=== PATIENT | female | born 1955 | race Two or more races ===

== ENCOUNTER 2021-05-01 08:00 | Outpatient (CLI) | payer OTHER | END 2021-05-01 09:39 | disposition home or self-care (01) | LOC: PPH VACUNA 08:00 | PROVIDERS: ATTEND Emergency Medicine Pediatric Emergency Medicine | DX: Z23 Encounter for immunization (principal) ==

== ENCOUNTER 2021-07-24 17:38 | Emergency (ER) | payer OTHER ==
[~2021-07-24] VITALS: Ht 162.6 cm; Wt 109.8 kg
== END 2021-07-24 22:19 | disposition home or self-care (01) ==
LOC: ER 17:38
DX: G51.0 Bell's palsy (principal); R53.1 Weakness

== ENCOUNTER 2023-12-31 08:02 | Emergency (ER) | payer OTHER ==
[~2023-12-31] VITALS: Ht 162.6 cm; Wt 102.1 kg
[2023-12-31] MEDS ORDERED: LIPITOR20 MG (08:12)
[2023-12-31] MEDS ORDERED: AVAPRO150 MG (08:12)
[2023-12-31] MEDS ORDERED: GLUMETZA500 MG (08:12)
[2023-12-31] MEDS ORDERED: KETOROLAC TROMETHAMINE 30 MG VIAL IV ONE (08:45)
[2023-12-31] MEDS ORDERED: 0.9 % SODIUM CHLORIDE 500 ML IV SCH (08:45)
[2023-12-31] MEDS ORDERED: KETOROLAC TROMETHAMINE 30 MG VIAL ONE (09:07)
[2023-12-31 09:41] LABS: PH,URINE 7.5 (5.0-8.0); URINE APPEARANCE Clear; URINE BILIRRUBIN Negative (NEGATIVE); URINE BLOOD Negative; URINE COLOR Yellow; URINE GLUCOSE Negative (NEGATIVE); URINE LEUKOCYTE Moderate; URINE NITRATE Negative; URINE PROTEIN Negative (NEGATIVE)
[2023-12-31 09:45] LABS: URINE BACTERIA 467.3 uL (0.0-1933); URINE EPITHELIAL CELLS 14.9 uL (0.0-38.8); URINE RBC 36.4 uL (0.0-20.8); URINE WBC 5.8 uL (0.0-23.2)
[2023-12-31 09:53] LABS: INR 1.11; PARTIAL THROMBOPLASTIN TIME 30.8 SECONDS (22.0-34.0); PROTHROMBIN TIME 11.6 SECONDS (9.0-11.5)
[2023-12-31 10:52] LABS: HEMATOCRIT 38.9 % (36.0-45.00); HEMOGLOBIN 12.5 g/dL (12.0-15.00); MEAN CELL VOLUME 83.1 fL (80.00-100.00); MEAN CORPUSCULAR HEMOGLOBIN 26.7 pg (27.00-32.0); MEAN CORPUSCULAR HGB CONC 32.2 g/dl (32.0-36.0); PLATELET COUNT 195 K/uL (150-450); RED BLOOD COUNT 4.68 M/uL (4.00-6.00); RED CELL DISTRIBUTION WIDTH 16.9 % (11.5-14.5)
[2023-12-31 11:14] LABS: CALCIUM 9.2 mg/dL (8.5-10.1); CREATININE SERUM 0.69 mg/dL (0.55-1.02); GFR 84.36
[2023-12-31 11:15] LABS: POTASSIUM 4.31 mEq/L (3.5-5.1)
[2023-12-31] MEDS ORDERED: ZOFRAN8 MG PO (11:34)
[2023-12-31] MEDS ORDERED: PEPCID AC20 MG PO (11:34)
[2023-12-31] MEDS ORDERED: INTESTINEX680 M1 PO (11:34)
[2023-12-31] MEDS ORDERED: METRONIDAZOLE500 MG PO (11:34)
[2023-12-31] MEDS ORDERED: CIPRO500 MG PO (11:34)
== END 2023-12-31 12:03 | disposition home or self-care (01) ==
LOC: ER 08:03
PROVIDERS: General Practice
DX: K57.92 Diverticulitis of intestine, part unspecified, without perforation or abscess without bleeding (principal); R10.9 Unspecified abdominal pain; E11.9 Type 2 diabetes mellitus without complications; Z79.84 Long term (current) use of oral hypoglycemic drugs

== ENCOUNTER 2025-05-10 12:20 | Emergency (ER) | payer OTHER ==
[~2025-05-10] VITALS: Ht 162.6 cm; Wt 101.6 kg
[~2025-05-10 12:20] MED LIST: AVAPRO150 MG; CIPRO500 MG PO; GLUMETZA500 MG; INTESTINEX680 M1 PO; LIPITOR20 MG; METRONIDAZOLE500 MG PO; PEPCID AC20 MG PO; ZOFRAN8 MG PO
[2025-05-10] MEDS ORDERED: 0.9 % SODIUM CHLORIDE 1,000 ML IV SCH (14:15)
[2025-05-10] MEDS ORDERED: FAMOTIDINE/PF 20 MG in 0.9 % SODIUM CHLORIDE 8 ML IV PUSH ONE (14:15)
[2025-05-10] MEDS ORDERED: KETOROLAC TROMETHAMINE 30 MG VIAL IU ONE (14:15)
[2025-05-10] MEDS ORDERED: CEFTRIAXONE SODIUM 2,000 MG in 0.9 % SODIUM CHLORIDE 100 ML IV ONE (14:15)
[2025-05-10] MEDS ORDERED: ACETAMINOPHEN 500 MG GEL..CAP PO ONE (14:15)
[2025-05-10] MEDS ORDERED: KETOROLAC TROMETHAMINE 30 MG VIAL ONE (15:15)
[2025-05-10] MEDS ORDERED: CEFTRIAXONE SODIUM 2,000 MG VIAL ONE (15:16)
[2025-05-10] MEDS ORDERED: FAMOTIDINE/PF 20 MG/2 ML VIAL ONE (15:16)
[2025-05-10 15:22] LABS: BASO % 0.5 % (0.1-1.2); EOS # 0.37 (0.04-0.54); EOS % 4.2 % (0.7-7.0); LYMPH # 2.06 (1.18-3.74); LYMPH % 23.7 % (19.3-53.1); MEAN PLATELET VOLUME 10.70 fl (9.4-12.4); MONO # 0.49 (0.24-0.82); MONO % 5.6 % (4.7-12.5); NEUT # 5.72 (1.56-6.13); NEUT % 65.7 % (34.0-71.1); RED CELL DISTRIBUTION WIDTH 15.0 % (11.6-14.4)
[2025-05-10 15:48] LABS: INR 1.07
[2025-05-10 16:11] LABS: ALT/SGPT 19.0 U/L (12-78); AST/SGOT 22.0 U/L (15-37); BILIRUBIN TOTAL 0.43 mg/dL (0.3-1.2); BUN CREA RATIO 18.0 (7.0-25.0); CREATININE SERUM 0.8 mg/dL (0.55-1.02); GFR 70.91; GLOBULINA 3.3 G/DL (2.4-3.5); GLUCOSE FASTING 134.0 mg/dL (65-100); OSMOLALITY SERUM 280.0 MOSM/KG (275-295)
[2025-05-10 16:30] LABS: ERYTHROCYTE SEDIMENTATION RATE 88 mm/hr (0-30)
[2025-05-10 17:00] LABS: URINE APPEARANCE Clear; URINE BILIRRUBIN Negative (NEGATIVE); URINE BLOOD Negative; URINE COLOR Yellow; URINE GLUCOSE Negative (NEGATIVE); URINE KETONE Negative (NEGATIVE); URINE LEUKOCYTE Trace; URINE NITRATE Negative; URINE PROTEIN Negative (NEGATIVE); URINE UROBILINOGEN 0.2 E.U./dl
[2025-05-10 17:04] LABS: URINE BACTERIA 328.7 uL (0.0-1933); URINE EPITHELIAL CELLS 13.8 uL (0.0-38.8); URINE RBC 9.0 uL (0.0-20.8); URINE WBC 13.5 uL (0.0-23.2)
[2025-05-10 17:17] LABS: URINE CAST 0.00 uL (0.0-1.40)
[2025-05-10] MEDS ORDERED: IBUPROFEN600 MG PO (18:55)
[2025-05-10] MEDS ORDERED: MONDOXYNE NL100 MG PO (18:55)
[2025-05-10] MEDS ORDERED: PEPCID AC20 MG PO (18:55)
[2025-05-10] MEDS ORDERED: VANCOMYCIN HCL 1,000 MG VIAL IV ONE (19:00)
[2025-05-10] MEDS ORDERED: VANCOMYCIN HCL 1,000 MG VIAL ONE (19:09)
== END 2025-05-10 22:46 | disposition home or self-care (01) ==
LOC: ER 12:21
PROVIDERS: General Practice
DX: L03.116 Cellulitis of left lower limb (principal); E11.9 Type 2 diabetes mellitus without complications; Z79.84 Long term (current) use of oral hypoglycemic drugs; E03.9 Hypothyroidism, unspecified
CPT/HCPCS: 36415; 73590; 96365; 96366; 99283; J0696; J1885; J3490; J7030